=== PATIENT | female | born 1985 | race Caucasian/White ===

== ENCOUNTER → 2016-06-30 | Outpatient (CLI) | payer BC ==
[2016-06-30 12:39] LABS: Basophils % (A) 0 %; CH 31.9; CHCM 33.7; Eosinophils % (A) 0 %; HCT 43.6 % (34.0-46.0); HDW 2.33; HGB 14.6 gm/dL (11.4-16.0); Luc # (Auto) 0.06; Luc % (Auto) 1; Lymphocytes # (A) 1.7 k/uL (1.0-4.8); Lymphocytes % (A) 35 %; MCH 31.9 pg (25.0-35.0); MCHC 33.6 g/dL (31.0-37.0); MCV 94.8 fL (80.0-100.0); Mean Platelet Volume 6.8; Monocytes # (A) 0.2 k/uL (0-1.0); Monocytes % (A) 4 %; Neutrophils # (A) 2.9 k/uL (1.3-7.7); Neutrophils % (A) 59 %; WBC 4.9 k/uL (3.8-10.6); WBC (Perox) 5.07
[2016-06-30 13:06] LABS: ALT 36 U/L (9-52); AST 18 U/L (14-36); Alkaline Phosphatase 67 U/L (38-126); Anion Gap 11 mmol/L; Blood Urea Nitrogen 6 mg/dL (7-17); Calcium 9.3 mg/dL (8.4-10.2); Carbon Dioxide 28 mmol/L (22-30); Chloride 103 mmol/L (98-107); Glucose 88 mg/dL (74-99); Non-African American GFR(MDRD) >60 (>60 ml/min/1.73 sqM); Potassium 3.9 mmol/L (3.5-5.1); Sodium 142 mmol/L (137-145); Total Bilirubin 0.4 mg/dL (0.2-1.3); Total Protein 7.7 g/dL (6.3-8.2)
[2016-06-30 14:01] LABS: Erythrocyte Sedimentation Rate 7 mm/hr (0-20)
[2016-06-30 22:13] LABS: ANA w/Reflex to Titer POSITIVE (NEGATIVE)
== END | disposition home or self-care (01) ==
LOC: LABWHC1 12:06
PROVIDERS: ATTEND Internal Medicine
DX: R06.00 Dyspnea, unspecified (principal)
CPT/HCPCS: 36415; 80053; 84439; 84443; 85025; 85379; 85652; 86038; 86039

== ENCOUNTER → 2016-08-12 | Day surgery (SDC) | payer BC ==
[2016-08-10 10:39] VITALS: BMI 21.0
[2016-08-12 12:54] VITALS: BP 109/76; PULSE 71; RESP 16; TEMP 98.6
== END ==
LOC: ORWHC2ENDO 12:09
PROVIDERS: ATTEND Internal Medicine Gastroenterology
DX: K21.9 Gastro-esophageal reflux disease without esophagitis (principal); Z53.29 Procedure and treatment not carried out because of patient's decision for other reasons
CPT/HCPCS: 91010; 91038

== ENCOUNTER → 2016-09-04 | Outpatient (CLI) | payer BC | LOC: LABWHC1 15:17 | PROVIDERS: ATTEND Otolaryngology | DX: Z53.9 Procedure and treatment not carried out, unspecified reason (principal) ==

== ENCOUNTER 2016-09-08 11:03 | Day surgery (SDC) | payer BC ==
[2016-09-07 08:55] VITALS: BMI 21.2
[~2016-09-08 11:03] MED LIST: LACTATED RINGERS 1,000 ML IV SCH; LIDOCAINE 1% 20 ML VIAL (10MG/ML) FOR IV START INTRADERMA PRN
[2016-09-08 11:41] VITALS: RESP 16; TEMP 98.2
[2016-09-08] MEDS ORDERED: LIDOCAINE 1% INJ 10MG/ML (20 ML MDV) ONE (11:44)
[2016-09-08] MEDS ORDERED: PROPOFOL 10 MG/ML 20 ML VIAL IV ONE (11:44)
[2016-09-08 12:32] VITALS: BP 120/81; PULSE 67
--- NOTE | 2016-09-08 12:55 | P.PCN ---
Date of Procedure: 09/08/16 Procedure(s) Performed: Procedure: Esophagogastroduodenoscopy and biopsy. Preoperative diagnosis: Chronic reflux symptoms, passive regurgitation and atypical chest pains. Postoperative diagnosis: 1. Small sliding hiatal hernia with no obvious esophagitis or complicated reflux disease. 2. Mild antral gastritis. 3. Multiple biopsies obtained from the duodenum, antrum and esophagus. Preparation and sedation: Was provided by anesthesia. Brief clinical history: The patient is a 31-year-old female who was evaluated in the office earlier this year for multiple symptoms including atypical chest pain and passive regurgitation and globus sensation. Had upper endoscopy in December 2015 and was told that she had esophagitis. She has not responded consistently to PPI and other medicines. This evaluation is to assess for esophagitis, complicated reflux disease or other pathology. Procedure: With the patient on her left lateral decubitus position and after informed consent and adequate sedation, I passed the Olympus-GIF 160 video upper endoscope through the cricopharyngeus down the esophagus. GE junction was around 40-41 cm from the incisors and there was a small sliding hiatal hernia. The esophagus did not show any erosions, ulcers, strictures or Bell' s esophagus. The endoscope was then passed into the stomach which was insufflated with air and inspected in detail including the retroflex view in the cardia. There was some mottling and erythema in the antrum but no ulcers or erosions. Pyloric channel did not show any ulcers, duodenal bulb, post bulbar area and descending duodenum showed minimal erythema with no ulcers, erosions or bleeding. I obtained multiple biopsies from the duodenum, antrum and esophagus then the endoscope was withdrawn. The patient tolerated the procedure well. Plan: The patient was reassured. Will await biopsy results and make further recommendations. Would keep you updated on her progress.
== END 2016-09-08 12:50 | disposition home or self-care (01) ==
LOC: ORWHC2ENDO 11:03
DX: K29.50 Unspecified chronic gastritis without bleeding (principal); K44.9 Diaphragmatic hernia without obstruction or gangrene; K21.0 Gastro-esophageal reflux disease with esophagitis; Z91.09 Other allergy status, other than to drugs and biological substances; Z72.0 Tobacco use; Z79.899 Other long term (current) drug therapy
CPT/HCPCS: 81025; 88305; 88342; 43239; J2001; J2704

== ENCOUNTER → 2017-07-21 | Outpatient (CLI) | payer BC ==
--- NOTE | 2017-07-21 12:04 | US ---
EXAMINATION TYPE: US thyroid st tissue head/neck DATE OF EXAM: 07/21/2017 COMPARISON: CT scan 12/13/2015 CLINICAL HISTORY: Cervical lymphadenopathy R59.0. palpable area felt bilateral neck, one on the left submandibular area causes pain and ear ringing Bilateral neck scanned and multiple lymph nodes seen, largest measuring 0.9cm Probable lymph node versus other etiology seen at distal end of parotid gland = 0.6cm, this site is t he most sensitive for the patient and has swelled in the past. IMPRESSION: Nonspecific soft tissue nodules bilaterally most likely in the basis of lymph nodes. Correlate clinic ally. A small 6 mm parotid nodule not entirely excluded and could be correlated with CT of the neck.
== END | disposition home or self-care (01) ==
LOC: RADUSWWP 10:23
PROVIDERS: ATTEND Family Medicine
DX: R22.1 Localized swelling, mass and lump, neck (principal)
CPT/HCPCS: 76536

== ENCOUNTER → 2017-11-26 | Outpatient (CLI) | payer BC ==
--- NOTE | 2017-11-26 08:34 | CT ---
EXAMINATION TYPE: CT soft tissue neck w con DATE OF EXAM: 11/26/2017 HISTORY: Acute lymphadenitis per order. Trouble swallowing per patient. COMPARISON: CT neck December 13, 2015 CT DLP: 415 mGycm. Automated Exposure Control for Dose Reduction was Utilized. TECHNIQUE: CT scan of the neck is performed with IV Contrast, patient injected with 100 ml mL of Iso shamika 300, axial images are obtained, coronal and sagittal reformatted images are reviewed. FINDINGS: Airway: Nasopharyngeal and oropharyngeal airways are patent. Region of epiglottis and vallecula appea rs within normal limits. Hypopharyngeal airway appears unremarkable leading to proximal trachea. Thyr oid gland is felt within normal limits in size. There is mild biapical pleural/parenchymal scarring o therwise visualized lungs are clear. Parotid/submandibular glands: No gross abnormality seen. Carotid/Vascular Structures: Normal three-vessel origin from arch . No significant plaque at carotid bulb level. Osseous Structures: Metallic disc material is noted anteriorly C4-C5 and C5-C6 levels, this is new fr om prior. Other: There are 4 metallic BB is at level of palpable Swallen areas per patient over right aspect th yroid gland axial image 48, right central submandibular region just below hyoid bone axial image 32, left lateral submandibular region at level of hyoid bone axial image 28 and right parotid level axial image 19. No suspicious solid or cystic mass or abnormal fluid collection is seen in the neck with p articular attention to these levels. No suspicious greater than 1 cm adenopathy is present. There are symmetric benign-appearing subcentimeter lymph nodes in the neck bilaterally noted. IMPRESSION: No suspicious mass or adenopathy is seen. Airway is patent.
== END | disposition home or self-care (01) ==
LOC: RADCTMAIN 07:13
PROVIDERS: ATTEND Family Medicine
DX: L04.9 Acute lymphadenitis, unspecified (principal)
CPT/HCPCS: 70491; Q9967

== ENCOUNTER → 2018-02-16 | Outpatient (CLI) | payer BC | END | disposition home or self-care (01) | LOC: LABWHC1 08:59 | PROVIDERS: ATTEND Obstetrics & Gynecology | DX: Z34.00 Encounter for supervision of normal first pregnancy, unspecified trimester (principal) | CPT/HCPCS: 36415; 84702 ==

== ENCOUNTER → 2018-05-03 | Outpatient (CLI) | payer BC | END | disposition home or self-care (01) | LOC: LABWHC1 11:32 | PROVIDERS: ATTEND Obstetrics & Gynecology | DX: O99.89 Other specified diseases and conditions complicating pregnancy, childbirth and the puerperium (principal); R53.83 Other fatigue; Z3A.00 Weeks of gestation of pregnancy not specified | CPT/HCPCS: 36415; 84702 ==

== ENCOUNTER → 2018-09-30 | Outpatient (CLI) | payer OTHER ==
[2018-09-30 11:49] LABS: Glucose 3 Hour, Gest 78 mg/dL
== END ==
LOC: LABWHC1 07:22
PROVIDERS: ATTEND Obstetrics & Gynecology
DX: O24.419 Gestational diabetes mellitus in pregnancy, unspecified control (principal); Z3A.00 Weeks of gestation of pregnancy not specified
CPT/HCPCS: 36415; 82951; 82952

== ENCOUNTER 2018-10-22 21:35 | Outpatient (CLI) | payer OTHER ==
[2018-10-22] MEDS ORDERED: LACTATED RINGERS 1,000 ML IV SCH ×2 (22:00→22:15)
[2018-10-22] MEDS ORDERED: CALCIUM GLUCONATE 1 GM/10 ML VIAL IV PRN (22:04)
[2018-10-22] MEDS ORDERED: MAGNESIUM SULFATE-WATER PMX 4 GM in WATER FOR INJECTION 1 100ML.BAG IVPB ONE (22:04)
[2018-10-22] MEDS ORDERED: AMPICILLIN 2,000 MG in SODIUM CHLORIDE 0.9% 100 ML IVPB STA (22:06)
[2018-10-22] MEDS ORDERED: MAGNESIUM SULFATE-WATER PMX 20 GM in WATER FOR INJECTION 1 500ML.BAG IV SCH (22:15)
[2018-10-22] MEDS ORDERED: BETAMET ACET-BETAMETH SOD PHOS 6 MG/ML VIAL IM SCH (22:15)
[2018-10-22 22:16] VITALS: RESP 16
[2018-10-22 22:49] LABS: Basophils % (A) 0 %; Eosinophils # (A) 0.1 k/uL (0-0.7); Eosinophils % (A) 1 %; HCT 34.1 % (34.0-46.0); HGB 11.8 gm/dL (11.4-16.0); Lymphocytes # (A) 2.5 k/uL (1.0-4.8); Lymphocytes % (A) 25 %; MCH 32.7 pg (25.0-35.0); MCHC 34.7 g/dL (31.0-37.0); MCV 94.2 fL (80.0-100.0); Mean Platelet Volume 7.4; Monocytes # (A) 0.5 k/uL (0-1.0); Monocytes % (A) 4 %; Neutrophils % (A) 68 %; Platelet Count 194 k/uL (150-450); RBC 3.62 m/uL (3.80-5.40); WBC 10.2 k/uL (3.8-10.6)
--- NOTE | 2018-10-22 22:54 | P.HPOB ---
History of Present Illness H&P Date: 10/22/18 Chief Complaint: PROM 33 year old presents at 31 weeks 1 day with SROM at 9pm. She has a history of shortened cervix found on anatomy US. She has followed with M and had BMZ at 24 weeks. Her latest US showed 6mm cervix and she was dilated 1cm. She is not guerline now and heart tones are 140 with moderate variability, +accels, category 1. Review of Systems All systems: negative Constitutional: Denies chills, Denies fever Eyes: denies blurred vision, denies pain Ears, nose, mouth and throat: Denies headache, Denies sore throat Cardiovascular: Denies chest pain, Denies shortness of breath Respiratory: Denies cough Gastrointestinal: Denies abdominal pain, Denies diarrhea, Denies nausea, Denies vomiting Genitourinary: Denies dysuria, Denies hematuria Musculoskeletal: Denies myalgias Integumentary: Denies pruritus, Denies rash Neurological: Denies numbness, Denies weakness Psychiatric: Denies anxiety, Denies depression Endocrine: Denies fatigue, Denies weight change Past Medical History Past Medical History: GI Bleed History of Any Multi-Drug Resistant Organisms: None Reported Past Surgical History: Cholecystectomy Additional Past Surgical History / Comment(s): CERVICAL BIOPSY Past Anesthesia/Blood Transfusion Reactions: No Reported Reaction, Motion Sickness Smoking Status: Current every day smoker - Past Family History Father Additional Family Medical History / Comment(s): Father has diverticulitis. He is 58 yrs. old. Mother Family Medical History: No Reported History Additional Family Medical History / Comment(s): Mother is healthy and is 54 yrs. old Medications and Allergies Home Medications Medication Instructions Recorded Confirmed Type Azithromycin 1 tab PO DAILY 10/22/18 10/22/18 History Cyclobenzaprine [Flexeril] 1 tab PO DAILY 10/22/18 10/22/18 History Pnv,Calcium 72/Iron/Folic Acid 1 tab PO DAILY 10/22/18 10/22/18 History [ Plus Tablet] Allergies Allergy/AdvReac Type Severity Reaction Status Date / Time adhesive Allergy Rash/Hives Verified 10/22/18 21:41 bupropion HCl [From Zyban] Allergy Rash/Hives Verified 10/22/18 21:41 Exam Osteopathic Statement: *. No significant issues noted on an osteopathic structural exam other than those noted in the History and Physical/Consult. Vital Signs Temp Pulse Resp BP Pulse Ox 10/22/18 22:33 83 16 115/67 10/22/18 22:03 98.7 F 89 16 131/74 100 Intake and Output 10/22/18 10/22/18 10/22/18 06:59 14:59 22:59 Other: Weight 63.503 kg HEart: RRR Lungs: CTAB ABdomen: soft, nontender Extremeties: neg walt's Assessment and Plan (1) premature rupture of membranes Current Visit: Yes Status: Acute Code(s): O42.919 - PRETRM DELL ROM, UNSP TIME BETW RUPT AND ONST LABR, UNSP TRI SNOMED Code(s): 380490159 Plan: 1. transfer [place] [place]. BMZ 3. mag sulfate 4. IV antibiotics
[2018-10-22 22:55] VITALS: BP 121/76; PULSE 91; TEMP 97.9
== END 2018-10-22 23:30 ==
LOC: FBPOP 21:35
PROVIDERS: ATTEND Obstetrics & Gynecology
DX: O42.913 Preterm premature rupture of membranes, unspecified as to length of time between rupture and onset of labor, third trimester (principal); Z3A.31 31 weeks gestation of pregnancy
CPT/HCPCS: 59025; 96361; 96365; 96367; 96372; 84112; 85025; G0463; J0702; J3475 ×2; J0290; 99215

== ENCOUNTER → 2019-04-20 | Outpatient (CLI) | payer OTHER ==
--- NOTE | 2019-04-20 15:27 | US ---
EXAMINATION TYPE: Transabdominal DATE OF EXAM: 04/20/2019 2:36 PM COMPARISON: NONE CLINICAL HISTORY: Z36 confirm dates. Dates EXAM PERFORMED: Transabdominal (TA) EXAM MEASUREMENTS: GESTATIONAL AGE / DATING Dates by LMP: (8 weeks/6 days) EDC: 11/24/2019 Dates by Current Scan for: (8 weeks/6 days) EDC: 11/24/2019 MATERNAL ANATOMY Uterus: 10.7 x 7.1 x 5.3 cm Right Ovary: 2.4 x 1.4 x 1.3 cm Left Ovary: 3.2 x 2.1 x 1.8 cm Post CDS / Adnexa: no free fluid Presence of free fluid: no Presence of corpus luteal cyst: left ovarian lesion with peripheral vascular flow - 1.6 x 2.0 x 1.9 c m Presence of subchorionic bleed: No GESTATION / SURVEY CRL: 2.2 cm (8 weeks/6 days) MSD: seen, not measured Yolk Sac (normal less than 6mm): 3.2 mm Heart Rate: 167 bpm Rhythm: Normal IUP: Viable IUP Date of LMP: 02/23/2019, Beta HcG (if available): Not available at this time Single live IUP measuring 8 weeks 6 days. IMPRESSION: Single viable intrauterine as noted.
== END | disposition home or self-care (01) ==
LOC: RADUSWWP 14:18
PROVIDERS: ATTEND Obstetrics & Gynecology
DX: Z36.89 Encounter for other specified antenatal screening (principal); Z3A.00 Weeks of gestation of pregnancy not specified
CPT/HCPCS: 76801

== ENCOUNTER → 2019-04-21 | Outpatient (CLI) | payer OTHER ==
[2019-04-21 13:31] LABS: HCT 39.5 % (34.0-46.0); HGB 14.1 gm/dL (11.4-16.0); MCH 33.8 pg (25.0-35.0); MCHC 35.7 g/dL (31.0-37.0); MCV 94.6 fL (80.0-100.0); Mean Platelet Volume 6.2; Platelet Count 193 k/uL (150-450); RBC 4.18 m/uL (3.80-5.40); WBC 5.3 k/uL (3.8-10.6)
[2019-04-21 18:25] LABS: African American GFR (CKD) 138.8 (60.0-200.0)
[2019-04-21 19:03] LABS: Hepatitis B Surface Antigen Non-Reactive (Non-Reactive)
[2019-04-21 19:21] LABS: HIV 1 AB Non-Reactive (Non-Reactive); HIV 2 AB Non-Reactive (Non-Reactive); HIV AB P24 Non-Reactive (Non-Reactive); HIV P24 AG Non-Reactive (Non-Reactive)
[2019-04-24 03:26] LABS: Toxoplasma Antibody (IgG) <3.0 IU/mL (<7.2); Toxoplasma Antibody (IgM) <3.0 AU/mL (<8.0)
== END ==
LOC: LABWHC1 12:16
PROVIDERS: ATTEND Obstetrics & Gynecology
DX: Z34.81 Encounter for supervision of other normal pregnancy, first trimester (principal); Z3A.00 Weeks of gestation of pregnancy not specified
CPT/HCPCS: 36415; 82565; 82947; 85027; 86762; 86777; 86778; 86780; 86850; 86900; 86901; 87340; 87390

== ENCOUNTER → 2019-10-31 | Outpatient (CLI) | payer OTHER | END | disposition home or self-care (01) | LOC: LABWHC1 08:45 | PROVIDERS: ATTEND Obstetrics & Gynecology | DX: Z11.59 Encounter for screening for other viral diseases (principal) | CPT/HCPCS: 87635 ==

== ENCOUNTER 2019-11-02 05:55 | Day surgery (SDC) | payer OTHER ==
--- NOTE | 2019-11-01 12:36 | P.HPOB ---
History of Present Illness H&P Date: 11/01/19 Chief Complaint: Cerclage removal This patient is a pleasant 34-year-old 4 para 1 female estimated date of confinement 11/24/2019 estimated gestational age 36-6/7 weeks who presents to labor and delivery for removal of cerclage. Patient's history is such that she had a previous delivery at 32 weeks secondary to an incompetent cervix and premature rupture membranes. This patient was seen by maternal medicine and a cerclage was placed at approximately 14 weeks. Patient's also been on progesterone injections and she is now at term and therefore the cerclage is to be removed. care is also complicated by tobacco use. Review of Systems Genitourinary: Reports Menstruation: Reports amenorrhea Past Medical History Past Medical History: GI Bleed Additional Past Medical History / Comment(s): delivery at 32 weeks secondary to PPROM and short cervix History of Any Multi-Drug Resistant Organisms: None Reported Past Surgical History: Cholecystectomy Additional Past Surgical History / Comment(s): CERVICAL BIOPSY, cerclage placement Past Anesthesia/Blood Transfusion Reactions: No Reported Reaction, Motion Sickness Smoking Status: Current every day smoker Past Alcohol Use History: None Reported Past Drug Use History: None Reported - Past Family History Father Additional Family Medical History / Comment(s): Father has diverticulitis. He is 58 yrs. old. Mother Family Medical History: No Reported History Additional Family Medical History / Comment(s): Mother is healthy and is 54 yrs. old Medications and Allergies Home Medications Medication Instructions Recorded Confirmed Type Pnv,Calcium 72/Iron/Folic Acid 1 tab PO DAILY 10/22/18 10/22/18 History [ Plus Tablet] Allergies Allergy/AdvReac Type Severity Reaction Status Date / Time adhesive Allergy Rash/Hives Verified 10/22/18 21:41 bupropion HCl [From Zyban] Allergy Rash/Hives Verified 10/22/18 21:41 Exam - OBG Physical Exam Abdomen: bowel sounds normal, no diffuse tenderness, no bruit present, no guarding noted, no hepatomegaly, no splenomegaly, no mass Vulva: both: normal Vagina: normal moisture, no discharge Cervix: no lesion (Cerclage is visualized with a knot anteriorly.), no discharge Uterus: normal size Assessment and Plan Assessment: This is a pleasant 34-year-old 4 para 1 female 36-6/7 weeks gestation who is admitted to labor and delivery in the triage area for cerclage removal. Plan is removal of cerclage and then observation. As long as the patient is not in labor she will be discharged home and continue routine care. (1) 36 to 37 weeks gestation of Status: Acute Code(s): GQZ4372 - SNOMED Code(s): 902404818 (2) Cervical cerclage suture present Status: Acute Code(s): O34.30 - MATERNAL CARE FOR CERVICAL INCOMPETENCE, UNSP TRIMESTER SNOMED Code(s): 96966155
--- NOTE | 2019-11-02 06:31 | P.PCN ---
Date of Procedure: 11/02/19 Preoperative Diagnosis: History of incompetent cervix with cerclage in place, term Postoperative Diagnosis: Same Procedure(s) Performed: Removal of cerclage Anesthesia: none Surgeon: Colby Curry Estimated Blood Loss (ml): 10 Pathology: none sent Condition: stable Disposition: observation Indications for Procedure: Please see dictated H&P for intimate details of this patient's admission. Brief summary this pleasant 34-year-old 4 para 1 female 36-6/7 weeks gestation is admitted to labor and delivery for cerclage removal. Patient's cerclage placed by maternal medicine at 14 weeks due to a short cervix. Patient now presents for removal. Operative Findings: Patient had a 5-0 Ethibond suture noted at 12:00 on the cervix. Description of Procedure: Speculum was placed in the vagina. Using a Jessica I would grab the knot of this suture she does appear to be buried. Using long males I cut the suture. Inspection shows the knot has been removed however there does appear to be residual suture in the cervix. This cannot be visualized at this time. Digital exam shows be 1 cm dilated and is evidence of cerclage is been released. Approximated blood loss is 10 mL. Patient we watched her for the next hour. Instructed to return if she has any leaking of fluid excessive vaginal bleeding, etc. She understands that the residual suture most likely will be retrieved at the time of delivery but does not need to removed at this time.
[2019-11-02 06:57] VITALS: BP 100/68; PULSE 90; RESP 16; TEMP 97.9
--- NOTE | 2019-11-02 18:26 | P.MSEPDOC ---
Presenting Problems - Arrival Data Date of Arrival on Unit: 11/02/19 Time of Arrival on Unit: 06:00 Mode of Transport: Ambulatory - Complaint OB-Reason for Admission/Chief Complaint: Other Comment: cerclage removal per Dr Curry Medical History - Information : 4 Para: 1 Term: 0 : 1 Abortions: Spontaneous or Elective: 2 Number of Living Children: 1 - Gestational Age Gestational Age by DAVIE (wks/days): 36 Weeks and 6 Days - History Complications: Incompetent Cervix, Prior Review of Systems - Review of Systems Constitutional: No problems Breast: No problems ENT: No problems Cardiovascular: No problems Respiratory: No problems Gastrointestinal: No problems Genitourinary: No problems Musculoskeletal: No problems Neurological: No problems Skin: No problems Vital Signs - Temperature Temperature: 97.9 F Temperature Source: Oral - Pulse Sitting Pulse Rate: 90 Pulse Assessment Method: Automatic Cuff - Respirations Respiratory Rate: 16 Oxygen Delivery Method: Room Air O2 Sat by Pulse Oximetry: 99 - Blood Pressure 99 Blood Pressure: 100/68 Blood Pressure Mean: 78 Blood Pressure Source: Automatic Cuff Medical Screen Scoring (Pre) - Cervical Exam Dilation: 1-3 cm = 1 Membranes: Intact - Uterine Contractions Frequency: N/A Duration: N/A Intensity: N/A - Maternal Vital Signs Maternal Temperature: N/A Signs of Preeclampsia: N/A Maternal Respirations: N/A - Assessment - Baby A Baseline FHR: 135 Heart Rate - NICHD Category: Category I (Normal) = 0 NST: Reactive - Total Score - Baby A Total Score - Baby A: 1 - Total Score - Baby B Total Score - Baby B: 1 - Total Score - Baby C Total Score - Baby C: 1 - Level of Risk - Baby A Level of Risk - Baby A: Low (0-5) - Level of Risk - Baby B Level of Risk - Baby B: Low (0-5) - Level of Risk - Baby C Level of Risk - Baby C: Low (0-5) - Pain Assessment Pain Scale Used: Numeric (1 - 10) Pain Intensity: 0 Physician Notification (Pre) - Physician Notified Physician Notified Date: 11/02/19 Physician Notified Time: 06:00 New Order Received: (PT MAY BE D/C AT 0730) Disposition - Disposition OB Disposition: Triage Discharge Date: 11/02/19 Discharge Time: 07:34 I agree with the RN Medical Screening Exam: Yes Risk & Benefit of care provided described in d/c instruction: Yes Diagnosis: MATERNAL CARE FOR CERVICAL INCOMPETENCE, THIRD TRIMESTER
== END 2019-11-02 07:34 | disposition home or self-care (01) ==
LOC: FBPOP 05:55
PROVIDERS: ATTEND Obstetrics & Gynecology
DX: Z48.02 Encounter for removal of sutures (principal); Z3A.36 36 weeks gestation of pregnancy
CPT/HCPCS: 59025

== ENCOUNTER 2019-11-07 10:05 | Outpatient (CLI) | payer OTHER ==
[2019-11-07 10:30] VITALS: BP 109/74; PULSE 91; RESP 15; TEMP 96.8
--- NOTE | 2019-11-09 09:44 | P.MSEPDOC ---
Presenting Problems - Arrival Data Date of Arrival on Unit: 11/07/19 Time of Arrival on Unit: 10:05 Mode of Transport: Ambulatory - Complaint OB-Reason for Admission/Chief Complaint: Decreased Movement Medical History - Information : 4 Para: 1 Term: 0 : 1 Abortions: Spontaneous or Elective: 2 Number of Living Children: 1 - Gestational Age Gestational Age by DAVIE (wks/days): 37 Weeks and 4 Days - History Complications: Smoker Review of Systems - Review of Systems Constitutional: No problems Breast: No problems ENT: No problems Cardiovascular: No problems Respiratory: No problems Gastrointestinal: No problems Genitourinary: No problems Musculoskeletal: No problems Neurological: No problems Skin: No problems Vital Signs - Temperature Temperature: 96.8 F Temperature Source: Temporal Artery Scan - Pulse Pulse Oximetery Pulse Rate: 91 Pulse Assessment Method: Pulse Oximetry - Respirations Respiratory Rate: 15 Oxygen Delivery Method: Room Air O2 Sat by Pulse Oximetry: 99 - Blood Pressure Right Arm Blood Pressure: 109/74 Blood Pressure Mean: 85 Blood Pressure Source: Automatic Cuff Medical Screen Scoring (Pre) - Cervical Exam Dilation: Exam Deferred Effacement: Exam Deferred Membranes: Intact - Uterine Contractions Frequency: N/A Duration: N/A Intensity: N/A - Maternal Vital Signs Maternal Temperature: N/A Maternal Blood Pressure: N/A Signs of Preeclampsia: N/A Maternal Respirations: N/A - Maternal Trauma Maternal Trauma: N/A - Assessment - Baby A Baseline FHR: 145 Heart Rate - NICHD Category: Category I (Normal) = 0 NST: Reactive Position: N/A Station: N/A - Total Score - Baby A Total Score - Baby A: 0 - Total Score - Baby B Total Score - Baby B: 0 - Total Score - Baby C Total Score - Baby C: 0 - Level of Risk - Baby A Level of Risk - Baby A: Low (0-5) - Level of Risk - Baby B Level of Risk - Baby B: Low (0-5) - Level of Risk - Baby C Level of Risk - Baby C: Low (0-5) Medical Screen Scoring (Post) - Cervical Exam Dilation: 1-3 cm = 1 Membranes: Intact - Uterine Contractions Frequency: N/A Duration: N/A Intensity: N/A - Maternal Vital Signs Maternal Temperature: N/A Maternal Blood Pressure: N/A Signs of Preeclampsia: N/A Maternal Respirations: N/A - Maternal Trauma Maternal Trauma: N/A - Assessment - Baby A Heart Rate: 145 Heart Rate - NICHD Category: Category I (Normal) = 0 NST: Reactive Position: N/A Station: N/A - Total Score Total Score - Baby A: 1 Total Score - Baby B: 1 Total Score - Baby C: 1 - Post Treatment Level of Risk Post Treatment Level of Risk - Baby A: Low (0-5) Post Treatment Level of Risk - Baby B: Low (0-5) Post Treatment Level of Risk - Baby C: Low (0-5) Physician Notification (Post) - Physician Notified Physician Notified Date: 11/07/19 Physician Notified Time: 10:45 Physician/Practitioner Notified:: [id number] Disposition - Disposition OB Disposition: Discharge to home Discharge Date: 11/07/19 Discharge Time: 10:53 I agree with the RN Medical Screening Exam: Yes Risk & Benefit of care provided described in d/c instruction: Yes Diagnosis: DECREASED MOVEMENTS, THIRD TRIMESTER, UNSP
== END 2019-11-07 10:54 | disposition home or self-care (01) ==
LOC: FBPOP 10:05
PROVIDERS: ATTEND Obstetrics & Gynecology
DX: O36.8130 Decreased fetal movements, third trimester, not applicable or unspecified (principal); Z3A.37 37 weeks gestation of pregnancy
CPT/HCPCS: 59025; G0463; 99213

== ENCOUNTER 2019-11-16 06:00 | Inpatient (IN) | payer OTHER ==
[2019-11-16] MEDS ORDERED: CARBOPROST TROMETHAMINE 250 MCG/ML 1 ML AMP IM PRN (06:02)
[2019-11-16] MEDS ORDERED: LIDOCAINE 0.5% (PF) 5 MG/ML (50 ML SDV) SQ PRN (06:02)
[2019-11-16] MEDS ORDERED: OXYTOCIN 10 UNIT/ML 1 ML VIAL IM PRN (06:02)
[2019-11-16] MEDS ORDERED: TERBUTALINE 1 MG/ML VIAL SQ PRN (06:02)
[2019-11-16] MEDS ORDERED: METHYLERGONOVINE 0.2 MG/ML 1 ML AMP IM PRN (06:02)
--- NOTE | 2019-11-16 06:08 | P.HPOB ---
History of Present Illness H&P Date: 11/16/19 Chief Complaint: Requested induction of labor This patient is a pleasant 34-year-old 4 para 1 female estimated date of confinement 11/23/2019 estimated gestational age 39 weeks who presents to labor and delivery for requested induction of labor secondary to maternal discomfort. is complicated by history of incompetent/short cervix. Patient had a cone biopsy in the remote past that we feel caused cervical incompetence. Patient did have a history of delivery last time at approximately 32 weeks. This patient was referred again to maternal- medicine and a cerclage was placed. Cerclage was removed at approximately 37 weeks, however there is one piece of the cerclage still remaining but the knot was removed. Patient very uncomfortable at this point is requesting delivery. care otherwise has been uncomplicated. Review of Systems Genitourinary: Reports Menstruation: Reports amenorrhea Past Medical History Past Medical History: GI Bleed Additional Past Medical History / Comment(s): delivery at 32 weeks secondary to PPROM and short cervix History of Any Multi-Drug Resistant Organisms: None Reported Past Surgical History: Cholecystectomy Additional Past Surgical History / Comment(s): CERVICAL BIOPSY, cerclage placement and removal Past Anesthesia/Blood Transfusion Reactions: No Reported Reaction, Motion Sickness Past Psychological History: No Psychological Hx Reported Smoking Status: Current every day smoker Past Alcohol Use History: None Reported Past Drug Use History: None Reported - Past Family History Father Additional Family Medical History / Comment(s): Father has diverticulitis. He is 58 yrs. old. Mother Family Medical History: No Reported History Additional Family Medical History / Comment(s): Mother is healthy and is 54 yrs. old Medications and Allergies Home Medications Medication Instructions Recorded Confirmed Type Pnv,Calcium 72/Iron/Folic Acid 1 tab PO DAILY 10/22/18 11/07/19 History [ Plus Tablet] Cyclobenzaprine [Flexeril] 1 tab PO DAILY 11/02/19 11/07/19 History Allergies Allergy/AdvReac Type Severity Reaction Status Date / Time adhesive Allergy Rash/Hives Verified 11/07/19 10:25 bupropion HCl [From Zyban] Allergy Rash/Hives Verified 11/07/19 10:25 Exam - OBG Physical Exam Abdomen: bowel sounds normal, no diffuse tenderness, no bruit present, no guarding noted, no hepatomegaly, no splenomegaly, no mass Vulva: both: normal Vagina: normal moisture, no discharge Cervix: no lesion (Cervix in the office was 2 cm dilated 90% effaced -2 station.), no discharge Uterus: enlarged (Fundal height 37 cm) Results blood work shows she is O+, rubella immune, RPR nonreactive, hepatitis B negative, HIV is nonreactive, toxoplasmosis was negative, anatomy ultrasound per [facility] was been normal, and growth has been at the 50th percentile. Group B strep was negative Assessment and Plan Assessment: This is a pleasant 34-year-old 4 para 1 female 39-0/7 weeks gestation presents to labor and delivery for requested induction of labor. Plan is induction of labor and anticipate vaginal delivery. (1) 39 weeks gestation of Current Visit: Yes Status: Acute Code(s): Z3A.39 - 39 WEEKS GESTATION OF SNOMED Code(s): 30782826 (2) Elective induction of labor planned Current Visit: Yes Status: Acute Code(s): IIR9486 - SNOMED Code(s): 476019394
[2019-11-16] MEDS ORDERED: OXYTOCIN 30 UNITS/500 ML NS 30 UNIT in SALINE 1 500ML.BAG IV SCH (06:15)
[2019-11-16] MEDS: LACTATED RINGERS 1,000 ML IV SCH ×2 (06:21→14:15)
[2019-11-16 06:34] LABS: Basophils % (A) 0 %; Eosinophils # (A) 0.1 k/uL (0-0.7); Eosinophils % (A) 1 %; HCT 37.2 % (34.0-46.0); HGB 11.8 gm/dL (11.4-16.0); Lymphocytes # (A) 1.7 k/uL (1.0-4.8); Lymphocytes % (A) 20 %; MCH 30.3 pg (25.0-35.0); MCHC 31.8 g/dL (31.0-37.0); MCV 95.1 fL (80.0-100.0); Mean Platelet Volume 8.2; Monocytes # (A) 0.3 k/uL (0-1.0); Monocytes % (A) 4 %; Neutrophils # (A) 6.4 k/uL (1.3-7.7); Neutrophils % (A) 73 %; Platelet Count 201 k/uL (150-450); RBC 3.91 m/uL (3.80-5.40); RDW 13.4 % (11.5-15.5); WBC 8.7 k/uL (3.8-10.6)
[2019-11-16] MEDS ORDERED: ROPIVACAINE 5MG/ML 20ML VIAL ONE (07:33)
[2019-11-16] MEDS ORDERED: fentaNYL (PF) 50 MCG/ML 5 ML AMP ONE (07:33)
[2019-11-16] MEDS ORDERED: SODIUM CHLORIDE 0.9% 100 ML BAG ONE (07:33)
--- NOTE | 2019-11-16 16:26 | P.PROBDLV ---
Vaginal Delivery Note - . Vaginal Delivery Note: Normal vaginal delivery viable female Apgars 9 and 10 delivery time is 1600 hrs. Please see dictated H&P for intimate details of this patient's admission. Brief summary is a pleasant 34-year-old 4 para 1 female 39 weeks gestation is admitted to labor and delivery for requested induction of labor. Patient a previous cerclage placed which is removed proximally 2 weeks ago. There was some residual cerclage "was not inhibiting her cervix. Patient is admitted she is 3 cm dilated and completely effaced is artificial rupture membranes for clear fluid. Labor is induced with Pitocin per protocol. She does get an epidural with good pain relief. Patient's labor progresses and she pushes for approximately 1 hour. Patient pushes the head to the perineum and the posterior perineum is supported. We then have controlled delivery of infant's head over the perineum. Mouth and nares are bulb suctioned. There is no evidence of a nuchal cord. After delivery of the infant's head with gentle downward traction we then have deliver the anterior posterior shoulder and rest this infant's body. This is a vigorous viable female Apgars are 9 and 10 delivery time was 1600 hrs. After delivery of the infant is laid on the mother's abdomen. After the cord is done pulsating it is doubly clamped and cut and appears to be trivascular. The placenta is then spontaneously delivered intact. This time, able to palpate the residual cerclage. Using ring forceps I removed the rest of this 5-0 Ethibond. The entire cerclage has now been removed. Speculum the perineum shows a first-degree laceration and this was repaired with 3-0 Vicryl usual fashion. Of note there are multiple large condyloma in this area and I try to avoid those is best as possible. Excellent reapproximation is noted. Estimated blood loss is 100 mL. All counts are correct 3. There are no complications. Infant and mother are stable delivery room.
[2019-11-16] MEDS ORDERED: ACETAMINOPHEN TAB 325 MG TAB PO PRN (17:01)
[2019-11-16] MEDS ORDERED: SIMETHICONE 80 MG CHEWABLE PO PRN (17:01)
[2019-11-16] MEDS ORDERED: BISACODYL 10 MG SUPP RECTAL PRN (17:01)
[2019-11-16] MEDS ORDERED: OXYTOCIN 20 UNITS/1000 ML NS 1,000 ML IV SCH (17:01)
[2019-11-16] MEDS ORDERED: ZOLPIDEM 5 MG TAB PO PRN (17:01)
[2019-11-16] MEDS ORDERED: WITCH HAZEL 1 EACH MED..PAD TOPICAL PRN (17:01)
[2019-11-16] MEDS ORDERED: BENZOCAINE/MENTHOL SPRAY 1 GM/SPRAY AEROSOL TOPICAL PRN (17:01)
[2019-11-16] MEDS ORDERED: diphenhydrAMINE 25 MG CAP PO PRN (17:01)
[2019-11-16] MEDS ORDERED: HYDROCORTISONE 2.5% RECTAL CREAM 30 GM TUBE RECTAL PRN (17:01)
[2019-11-16] MEDS ORDERED: LANOLIN CREAM 5 GM TUBE TOPICAL PRN (17:01)
[2019-11-16] MEDS ORDERED: diphenhydrAMINE 50 MG/ML 1 ML VIAL IVP PRN (17:01)
[2019-11-16] MEDS: SENNOSIDES-DOCUSATE SODIUM 1 EACH TAB PO SCH ×2 (19:26→20:28)
[2019-11-16] MEDS: IBUPROFEN 600 MG TAB PO PRN (19:27)
[2019-11-17] MEDS: IBUPROFEN 600 MG TAB PO PRN ×2 (04:00→10:05)
--- NOTE | 2019-11-17 06:00 | P.PNOBGVD ---
Subjective - Subjective Patient reports: Reports appetite normal, Reports voiding normally, Reports pain well controlled, Reports ambulating normally : doing well Objective - Latest Vital Signs Latest vital signs: Vital Signs Temp Pulse Resp BP Pulse Ox 11/17/19 04:00 98.1 F 71 18 111/65 98 11/17/19 00:00 97.6 F 98 16 109/69 100 11/16/19 20:24 99.4 F 11/16/19 19:43 100.4 F H 74 18 117/68 11/16/19 18:40 98.8 F 85 16 109/68 11/16/19 18:00 89 16 109/65 11/16/19 17:30 76 16 117/70 11/16/19 17:10 86 16 122/57 11/16/19 16:55 90 16 147/62 11/16/19 16:40 93 16 118/68 11/16/19 16:25 99.8 F H 90 16 125/76 11/16/19 06:12 96.5 F L 77 18 119/74 98 Intake and Output 11/16/19 11/16/19 11/17/19 14:59 22:59 06:59 Output Total 700 Balance -700 Output: Urine 700 Other: # Voids 1 1 1 # Bowel Movements 1 - Exam Lungs: bilateral: normal Chest: Normal S1, Normal S2 Extremities: Present: normal Abdomen: Present: normal appearance, soft Uterus: Present: normal, firm Assessment and Plan Assessment: day #1. Patient is resting without complaints. Vital signs are stab le and she is afebrile. She wishes to go home. Uterus is firm nontender she's having normal lochia. She did have a low-grade temperature to 100.4 yesterday evening but this has dissipated and she has no symptomatology. Plan today is to continue routine care. She continues afebrile and feeling well. Discharge home later tonight. (1) 39 weeks gestation of Current Visit: Yes Status: Acute Code(s): Z3A.39 - 39 WEEKS GESTATION OF SNOMED Code(s): 96839029 (2) Elective induction of labor planned Current Visit: Yes Status: Acute Code(s): BKJ6835 - SNOMED Code(s): 890450954
--- NOTE | 2019-11-17 06:05 | P.DS ---
Providers Date of admission: 11/16/19 06:00 Expected date of discharge: 11/17/19 Attending physician: Colby Curry Primary care physician: Ghazala Chavez - Discharge Diagnosis(es) (1) 39 weeks gestation of Current Visit: Yes Status: Acute (2) Elective induction of labor planned Current Visit: Yes Status: Acute Hospital Course: Please see dictated H&P for intimate details of this patient's admission. Brief summary this is a pleasant 34-year-old 4 para 1 female 39 weeks gestation who is admitted to labor and delivery for requested induction of labor. Patient is admitted she is uncomplicated induction of labor was on have a vaginal delivery viable female infant. Please see dictated delivery note. day #1 patient without complaints she wishes to go home. Patient's felt to be stable for discharge home follow up with me in 6 weeks. Procedures: Induction of labor and normal vaginal delivery. Removal of residual cerclage at the time of delivery Plan - Discharge Summary New Discharge Prescriptions: New Ibuprofen [Motrin] 600 mg PO Q6HR PRN #40 tab PRN Reason: Mild Pain Or Fever >= 100.5 No Action Pnv,Calcium 72/Iron/Folic Acid [ Plus Tablet] 1 tab PO DAILY Cyclobenzaprine [Flexeril] 1 tab PO DAILY Discharge Medication List Pnv,Calcium 72/Iron/Folic Acid [ Plus Tablet] 1 tab PO DAILY 10/22/18 [History] Cyclobenzaprine [Flexeril] 1 tab PO DAILY 11/02/19 [History] Ibuprofen [Motrin] 600 mg PO Q6HR PRN #40 tab 11/17/19 [Rx] Follow up Appointment(s)/Referral(s): Colby Curry MD [STAFF PHYSICIAN] - 6 Weeks Patient Instructions/Handouts: Vaginal Delivery (DC) Activity/Diet/Wound Care/Special Instructions: No intercourse or anything per vagina for 6 weeks. Please call if any fever, chills, excessive vaginal bleeding, and/or abdominal pain. Discharge Disposition: HOME SELF-CARE
[2019-11-17 09:34] VITALS: RESP 16; TEMP 98.3
[2019-11-17] MEDS: SENNOSIDES-DOCUSATE SODIUM 1 EACH TAB PO SCH (10:05)
[2019-11-17 17:26] VITALS: BP 108/65; PULSE 72
== END 2019-11-17 17:02 | disposition home or self-care (01) | DRG 806 ==
LOC: 4FBP 06:00
PROVIDERS: ADMIT Obstetrics & Gynecology; ATTEND Obstetrics & Gynecology
PROC: 10E0XZZ Delivery of Products of Conception, External Approach (ICD-10-PCS; principal; 2019-11-16)
PROC: 3E033VJ Introduction of Other Hormone into Peripheral Vein, Percutaneous Approach (ICD-10-PCS; 2019-11-16)
PROC: 10907ZC Drainage of Amniotic Fluid, Therapeutic from Products of Conception, Via Natural or Artificial Opening (ICD-10-PCS; 2019-11-16)
PROC: 0HQ9XZZ Repair Perineum Skin, External Approach (ICD-10-PCS; 2019-11-16)
DX: O26.873 Cervical shortening, third trimester (principal); O86.4 Pyrexia of unknown origin following delivery; Z37.0 Single live birth; O34.33 Maternal care for cervical incompetence, third trimester; O99.334 Smoking (tobacco) complicating childbirth; F17.200 Nicotine dependence, unspecified, uncomplicated; O70.0 First degree perineal laceration during delivery; M48.00 Spinal stenosis, site unspecified; Z87.51 Personal history of pre-term labor; Z90.49 Acquired absence of other specified parts of digestive tract; Z79.899 Other long term (current) drug therapy; Z3A.39 39 weeks gestation of pregnancy; Z87.19 Personal history of other diseases of the digestive system; Z88.8 Allergy status to other drugs, medicaments and biological substances; Z83.79 Family history of other diseases of the digestive system
CPT/HCPCS: 85025; 86850; 86900; 86901

== ENCOUNTER 2020-08-09 06:06 | Day surgery (SDC) | payer OTHER ==
[2020-08-05 10:49] VITALS: BMI 20.6
--- NOTE | 2020-08-07 17:31 | P.HPOB ---
History of Present Illness H&P Date: 08/07/20 Chief Complaint: Multi parity desires permanent sterilization, vulvar condyloma This patient is a 35-year-old 4 para 2 female who presented to my office requesting permanent sterilization. Patient has had a history of incompetent cervix is had 2 uncomplicated pregnancies resulting in a viable infants. Patient is now requesting permanent sterilization for control. Did discuss multiple other methods for her including vasectomy however her partner refuses to do this. She therefore wants to proceed with laparoscopic tubal cauterization. Patient also has 2 condyloma in the vulvar area on the left side and these have been persistent for over 1 year and she is requesting surgical removal at the time of her tubal ligation. Past Medical History Past Medical History: GERD/Reflux, GI Bleed Additional Past Medical History / Comment(s): extra heart beat during and since , delivery at 32 weeks secondary to PPROM and short cervix,spinal stenosis History of Any Multi-Drug Resistant Organisms: None Reported Past Surgical History: Cholecystectomy Additional Past Surgical History / Comment(s): CERVICAL BIOPSY, cerclage placement and removal,spinal procedure Past Anesthesia/Blood Transfusion Reactions: Family History of Problems w/ Anesthesia, Postoperative Nausea & Vomiting (PONV) Additional Past Anesthesia/Blood Transfusion Reaction / Comment(s): has difficulty with epidural placement r/t spinal stenosis, mom & sister have PONV Past Psychological History: No Psychological Hx Reported Smoking Status: Current every day smoker Past Alcohol Use History: None Reported Past Drug Use History: None Reported - Past Family History Father Additional Family Medical History / Comment(s): Father has diverticulitis. He is 58 yrs. old. Mother Family Medical History: No Reported History Additional Family Medical History / Comment(s): Mother is healthy Medications and Allergies Home Medications Medication Instructions Recorded Confirmed Type Cyclobenzaprine [Flexeril] 5 tab PO DAILY PRN 11/02/19 08/05/20 History Albuterol Inhaler [Ventolin Hfa 2 puff INHALATION RT-QID PRN 08/05/20 08/05/20 History Inhaler] Control 1 tab PO QAM 08/05/20 08/05/20 History Lansoprazole [Prevacid] 15 mg PO DAILY PRN 08/05/20 08/05/20 History Allergies Allergy/AdvReac Type Severity Reaction Status Date / Time adhesive Allergy Rash/Hives,paper Verified 08/05/20 10:37 tape is ok bupropion HCl [From Zyban] Allergy Rash/Hives Verified 08/05/20 10:37 Exam - OBG Physical Exam Abdomen: bowel sounds normal, no diffuse tenderness, no bruit present, no guarding noted, no hepatomegaly, no splenomegaly, no mass Vulva: left: condyloma (1 cm and 5 mm.) Vagina: normal moisture, no discharge Cervix: no lesion, no discharge Uterus: normal size, normal contour Assessment and Plan Assessment: This is a 35-year-old 4 para 2 female who presents requesting permanent sterilization and removal vulvar condyloma. Plan is laparoscopic bilateral fallopian tube cauterization and excision of vulvar condyloma. I did discuss in detail this surgery with the patient including the fact that is considered permanent, however there is a failure rate of approximately less than 5 per thousand procedures done. She understands if she does become she is a 50% chance of a tubal or an ectopic . She also understands that laparo scopic surgery and apparently has risks including risks of infection, bleeding, possible injury to bowel, bladder, vessels, and/or other organs, requiring further surgery. She understands that there are alternatives to this surgery that exist and that is considered elective. I also discussed that removal of her condyloma could cause perineal pain. All the patient's questions are answered and a written consent is obtained. (1) Family planning Status: Acute Code(s): Z30.09 - ENCOUNTER FOR OTH GENERAL CNSL AND ADVICE ON CONTRACEPTION SNOMED Code(s): 701523335 (2) Condyloma acuminatum of vulva Status: Acute Code(s): A63.0 - ANOGENITAL (VENEREAL) WARTS SNOMED Code(s): 388047466
[~2020-08-09 06:06] MED LIST changes: +DEXAMETHASONE SOD PHOSPHATE 4 MG/ML 1 ML VIAL IV ONE; -LIDOCAINE 1% 20 ML VIAL (10MG/ML) FOR IV START INTRADERMA PRN; +MIDAZOLAM 2 MG/2 ML VIAL IV PRN; +ONDANSETRON 4 MG/2 ML VIAL IVP ONE; +Pre Op ABX Message 1 EACH MISC MISCELLANE ONE; +SCOPOLAMINE 1.5MG/72HR PATCH TRANSDERM ONE
[2020-08-09] MEDS ORDERED: LIDOCAINE 1% (10MG/ML) FOR IV START INTRADERMA ONE (06:20)
[2020-08-09] MEDS ORDERED: fentaNYL (PF) 50 MCG/ML 2 ML AMP ONE (06:55)
[2020-08-09] MEDS ORDERED: LIDOCAINE 1% INJ 10MG/ML (20 ML MDV) ONE (06:55)
[2020-08-09] MEDS ORDERED: KETOROLAC 15 MG/ML 1 ML VIAL ONE (06:55)
[2020-08-09] MEDS ORDERED: PROPOFOL 10 MG/ML 20 ML VIAL IV ONE (06:55)
[2020-08-09] MEDS ORDERED: SUCCINYLCHOLINE CHLORIDE 100 MG/5 ML SYR IV ONE (06:55)
[2020-08-09] MEDS ORDERED: MIDAZOLAM 2 MG/2 ML VIAL ONE (06:55)
[2020-08-09] MEDS ORDERED: BUPIVACAINE (PF) 0.5% 30 ML VIAL SQ ONE (06:59)
[2020-08-09] MEDS ORDERED: LACTATED RINGERS 1,000 ML IV ONE (07:41)
--- NOTE | 2020-08-09 07:57 | P.OP ---
Date of Procedure: 08/09/20 Preoperative Diagnosis: Multi parity desires permanent sterilization, vulvar condyloma. Postoperative Diagnosis: Same Procedure(s) Performed: #1: Laparoscopic bilateral fallopian tubal cauterization. #2: Removal and cauterization of vulvar condyloma Anesthesia: OZZIE Surgeon: Colby Curry Estimated Blood Loss (ml): 10 Urine output (ml): 10 Pathology: other (Vulvar condyloma) Condition: stable Disposition: PACU Indications for Procedure: Please see dictated H&P for intimate details of this patient's admission. Brief summary is a pleasant 35-year-old 4 para 2 female residing for requested permanent sterilization. Patient also had chronic vulvar condyloma was wished excision and cauterization. Patient stands a tubal ligation is considered permanent although her as a failure rate of approximately less than 5 per thousand procedures done. She understands she does become she has a 50% chance of a tubal or an ectopic . Patient also understands that this is an elective procedure and alternatives do exist. We've discussed the risks of the surgery including the inherent risk of laparoscopy that includes infection, bleeding, possible injury bowel, bladder, vessels, and/or other organs. All the patient's questions are answered written consent is obtained. Operative Findings: This patient normal appearing uterus tubes and ovaries. The appendix was visualized and appeared normal as well. Patient had several condyloma the largest being on the left side was approximately 1 cm. There is a small perirectal 1. Another small one on the right side. Description of Procedure: This patient is taken to the operating room where she is laid in the supine position. She subsequently undergoes general endotracheal anesthesia without incident. With adequate level of anesthesia she's placed in dorsal lithotomy position. She has a vaginal perineal dominant prep and drape. First good on below placed a speculum in the vagina grabbed the anterior lip of cervix with an Allis clamp. The endocervix is then cannulated and attached an Allis clamp. Bladder is then drained with a red Beverly catheter is left in place. Then changed gloves go up above. Make a 1 cm infraumbilical incision and through this a 10 mm bladed lists optical trochars placed under direct visualization to the peritoneum. With peritoneal placement confirmed pneumoperitoneum was then created to 12 mm of carbon dioxide gas. Approximately 2 finger breaths above the symphysis pubis; 5 mm incision and a 5 mm bladed lists optical trochars placed under direct visualization. Using a blunt probe I then inspected the pelvis and upper abdomen. Uterus tubes and ovaries appear normal. Upper abdomen grossly appears normal. Using a bipolar cautery I grabbed the left fallopian tube approximately 4 cm from the cornual insertion need to 3 cm segment of tube was completely cauterized as demarcated by the volt meter. Similar technique is done on the right side with similar results. This completed the lower trochars removed. Excellent hemostasis is noted. Pneumoperitoneum was reduced and the upper trochars removed. Incisions are then closed with 4-0 Vicryl interrupted fashion. Steri-Strips, sterile dressing, and local infiltration was done. With this completed we turned our attention to the vulvar area and using a Bovie cautery at 35 W setting I completely excise all visible lesions. These are sent off to pathology. The largest one on the left side does require a 4-0 Vicryl suture to reapproximate. But excellent hemostasis is noted. With this done procedure is ended. Allis clamp and acorn cannula been removed. All counts are correct 3. There are no complications. Patient is awakened from anesthesia and taken to recovery in satisfactory condition.
[2020-08-09 07:58] VITALS: RESP 16; TEMP 97.1
[2020-08-09] MEDS: HYDROmorphone 0.5 MG/0.5 ML SYRINGE IVP PRN ×2 (08:16→08:30)
[2020-08-09] MEDS ORDERED: MEPERIDINE 50 MG/ML SYRINGE IVP ONE (08:43)
[2020-08-09 09:31] VITALS: BP 105/68; PULSE 67
== END 2020-08-09 09:51 | disposition home or self-care (01) ==
LOC: OR 06:06
PROVIDERS: ATTEND Obstetrics & Gynecology
DX: Z30.2 Encounter for sterilization (principal); A63.0 Anogenital (venereal) warts; K21.9 Gastro-esophageal reflux disease without esophagitis; Z87.19 Personal history of other diseases of the digestive system; Z90.49 Acquired absence of other specified parts of digestive tract; Z98.890 Other specified postprocedural states; F17.200 Nicotine dependence, unspecified, uncomplicated; Z83.79 Family history of other diseases of the digestive system; Z79.3 Long term (current) use of hormonal contraceptives; Z88.8 Allergy status to other drugs, medicaments and biological substances; Z91.09 Other allergy status, other than to drugs and biological substances; J45.909 Unspecified asthma, uncomplicated
CPT/HCPCS: 81025; 88305; 58670; 56501; J2250; J1100; J2175; J2405; J2001; J3010; J1885; J0330; J2704; J1170

== ENCOUNTER 2021-12-15 12:21 | Day surgery (SDC) | payer OTHER ==
[2021-12-10 13:51] VITALS: BMI 21.0
[~2021-12-15 12:21] MED LIST changes: -DEXAMETHASONE SOD PHOSPHATE 4 MG/ML 1 ML VIAL IV ONE; -LACTATED RINGERS 1,000 ML IV SCH; -MIDAZOLAM 2 MG/2 ML VIAL IV PRN; -ONDANSETRON 4 MG/2 ML VIAL IVP ONE; -Pre Op ABX Message 1 EACH MISC MISCELLANE ONE; -SCOPOLAMINE 1.5MG/72HR PATCH TRANSDERM ONE; +SODIUM CHLORIDE 0.9% 1,000 ML IV SCH
[2021-12-15] MEDS ORDERED: SODIUM CHLORIDE 0.9% 500 ML 500 ML IV ONE (12:37)
--- NOTE | 2021-12-16 18:54 | P.EPPROC ---
- EP Procedure Note Electrophysiology Procedure Note: Diagnosis Recurrent presyncope Twelve-lead EKG Sinus rhythm normal CA narrow QRS normal ST segments Normal QT interval Tilt table test per protocol Baseline blood pressure 113/79 mmHg Baseline heart rate 73 beats a minute Patient was tilted upright at an angle of 70 per protocol While her blood pressure remained stable heart rate did go up to 100 beats a minute within the first 10 minutes She complained of being dizzy when she was tilted upright Subsequently she complained of shortness of breath. At that time her blood pressure was normal heart rate is 91 beats a minute She is laid supine at the end of the procedure and her heart rate improved to 70 beats a minute Impression Normal twelve-lead EKG Orthostatic intolerance without syncope
== END 2021-12-15 16:11 | disposition home or self-care (01) ==
LOC: CATHEP 12:21
PROVIDERS: ATTEND Internal Medicine Clinical Cardiac Electrophysiology
DX: R55 Syncope and collapse (principal); R00.0 Tachycardia, unspecified; Z20.822 Contact with and (suspected) exposure to COVID-19; R03.1 Nonspecific low blood-pressure reading; R07.89 Other chest pain; R53.83 Other fatigue; Z82.49 Family history of ischemic heart disease and other diseases of the circulatory system; Z88.8 Allergy status to other drugs, medicaments and biological substances
CPT/HCPCS: 81025; 82533; 84443; 87635; 93660

== ENCOUNTER → 2022-01-15 | Outpatient (CLI) | payer OTHER | END | disposition home or self-care (01) | LOC: LABWHC1 10:04 | PROVIDERS: ATTEND Internal Medicine Clinical Cardiac Electrophysiology | DX: Z20.822 Contact with and (suspected) exposure to COVID-19 (principal); R55 Syncope and collapse; R03.0 Elevated blood-pressure reading, without diagnosis of hypertension | CPT/HCPCS: 36415 ==